=== PATIENT | female | born 1995 | race Caucasian/White ===

== ENCOUNTER 2021-10-16 11:55 | Emergency (ER) | payer OTHER ==
[~2021-10-16] VITALS: Ht 162.6 cm; Wt 61.4 kg
[2021-10-16] MEDS ORDERED: NS 1,000 ML IV ONE (12:20)
[2021-10-16] MEDS ORDERED: IBUPROFEN 600MG TAB PO ONE (12:20)
[2021-10-16 12:58] LABS: BASO # 0.1 10^3/uL (0.0-0.2); BASO % 0.3 % (0.0-1.0); EOS # 0.1 10^3/uL (0.0-0.5); EOS % 0.4 % (0.0-3.0); HEMATOCRIT 39.2 % (36.0-47.0); HEMOGLOBIN 11.7 g/dl (12.0-15.5); LYMPH # 3.3 10^3/uL (1.5-5.0); LYMPH % 21.4 % (24.0-44.0); MEAN CORPUSCULAR HEMOGLOBIN 21.9 pg (27.0-33.0); MEAN CORPUSCULAR HGB CONC 29.8 g/dl (32.0-36.5); MEAN CORPUSCULAR VOLUME 73.4 fl (80.0-96.0); MONO % 11.7 % (2.0-8.0); NEUTROPHILS # 10.3 10^3/uL (1.5-8.5); NEUTROPHILS % 65.8 % (36.0-66.0); PLATELET COUNT, AUTOMATED 409 10^3/uL (150-450); RED BLOOD COUNT 5.34 10^6/uL (4.00-5.40); WHITE BLOOD COUNT 15.6 10^3/uL (4.0-10.0)
[2021-10-16 13:22] LABS: MONO # 1.8 10^3/uL (0.0-0.8)
[2021-10-16 13:26] LABS: ALBUMIN 3.3 GM/DL (3.2-5.2); ALT/SGPT 19 U/L (12-78); BILIRUBIN,DIRECT < 0.1 MG/DL (0.0-0.2); BILIRUBIN,TOTAL 0.2 MG/DL (0.2-1.0); BLOOD UREA NITROGEN 12 MG/DL (7-18); CALCIUM LEVEL 8.5 MG/DL (8.5-10.1); CARBON DIOXIDE LEVEL 27 MEQ/L (21-32); CHLORIDE LEVEL 105 MEQ/L (98-107); CREATININE FOR GFR 0.76 MG/DL (0.55-1.30); GLOMERULAR FILTRATION RATE > 60.0 (>60); GLUCOSE, FASTING 77 MG/DL (70-100); NT-PRO BNP 29 PG/ML (<125); POTASSIUM SERUM 3.4 MEQ/L (3.5-5.1); SODIUM LEVEL 142 MEQ/L (136-145); THYROXINE (T4) 7.7 UG/DL (4.5-12.0); TOTAL PROTEIN 6.8 GM/DL (6.4-8.2)
[2021-10-16] MEDS ORDERED: ISOVUE-370 76% 100ML VIAL As Ordered ONE (13:36)
[2021-10-16 15:31] VITALS: O2SAT 96
[2021-10-16 16:15] VITALS: BP 108/66
== END 2021-10-16 17:02 | disposition home or self-care (01) ==
LOC: M ED 11:55 → EDBD 11:55 → M ED 17:02
DX: R06.02 Shortness of breath (principal); U07.1 COVID-19; Z88.0 Allergy status to penicillin; Z88.5 Allergy status to narcotic agent; Z91.018 Allergy to other foods; F17.210 Nicotine dependence, cigarettes, uncomplicated
CPT/HCPCS: 71045; 71275; 80048; 80076; 83605; 83880; 84145; 84436; 84443; 84702; 85025; 87040; 87798; 93005; 93041; 94760; 96360; 96361; 99285; Q9967

== ENCOUNTER → 2024-07-31 | Outpatient (CLI) | payer OTHER ==
[2024-07-31 18:11] LABS: HEMOGLOBIN 12.2 g/dl (12.0-15.5); MEAN CORPUSCULAR HEMOGLOBIN 28.4 pg (27.0-33.0); PLATELET COUNT, AUTOMATED 344 10^3/uL (150-450)
[2024-07-31 18:31] LABS: URIC ACID 4.1 MG/DL (3.1-7.8)
[2024-07-31 18:33] LABS: LDH LACTATE DEHYDROGENASE 137 U/L (120-246)
[2024-07-31 18:34] LABS: ALT/SGPT 10 U/L (7.0-40); AST/SGOT 10 U/L (<34); BILIRUBIN,TOTAL 0.2 MG/DL (0.3-1.2); CREATININE FOR GFR 0.43 MG/DL (0.55-1.30); GLOMERULAR FILTRATION RATE > 60.0 (>60)
[2024-07-31 19:00] LABS: HIV 1&2 SCREEN NEGATIVE (NEGATIVE)
[2024-07-31 19:07] LABS: HEPATITIS C VIRUS ABY INDEX 0.07 INDEX (<0.8)
== END ==
LOC: M PLALAB 15:13
PROVIDERS: ATTEND Nurse Practitioner Family
DX: Z34.82 Encounter for supervision of other normal pregnancy, second trimester (principal)

== ENCOUNTER → 2024-08-02 | Outpatient (CLI) | payer OTHER | LOC: M RAD 13:51 | PROVIDERS: ATTEND Nurse Practitioner Family | DX: Z34.92 Encounter for supervision of normal pregnancy, unspecified, second trimester (principal); Z3A.21 21 weeks gestation of pregnancy ==

== ENCOUNTER → 2024-08-23 | Outpatient (REF) | payer MEDICAID, OTHER ==
[2024-08-23 16:43] LABS: TOTAL PROTEIN,RANDOM URINE 21.1 MG/DL (0.0-14.0)
[2024-08-23 16:47] LABS: CREATININE,RANDOM URINE 129.9 MG/DL
[2024-08-23 18:03] LABS: GC DNA AMPLIFICATION NEGATIVE (NEGATIVE)
== END ==
LOC: M SFHCWAGY 15:27
PROVIDERS: ATTEND Nurse Practitioner Family
DX: Z34.82 Encounter for supervision of other normal pregnancy, second trimester (principal)

== ENCOUNTER → 2024-09-11 | Outpatient (CLI) | payer MEDICAID ==
[2024-09-11 15:00] LABS: HEMATOCRIT 33.8 % (36.0-47.0); HEMOGLOBIN 11.1 g/dl (12.0-15.5); MEAN CORPUSCULAR HEMOGLOBIN 28.8 pg (27.0-33.0); MEAN CORPUSCULAR HGB CONC 32.8 g/dl (32.0-36.5); MEAN CORPUSCULAR VOLUME 87.8 fl (80.0-96.0); PLATELET COUNT, AUTOMATED 324 10^3/uL (150-450); RED BLOOD COUNT 3.85 10^6/uL (4.00-5.40)
[2024-09-11 15:28] LABS: GLUCOSE CHALLENGE TEST 1 HOUR 83 MG/DL (LESS THAN 140)
[2024-09-11 16:20] LABS: HIV 1&2 SCREEN NEGATIVE (NEGATIVE)
[2024-09-11 16:28] LABS: HEPATITIS C VIRUS ABY INDEX 0.03 INDEX (<0.8)
== END ==
LOC: M LAB 11:54
PROVIDERS: ATTEND Specialist
DX: Z34.80 Encounter for supervision of other normal pregnancy, unspecified trimester (principal); Z3A.00 Weeks of gestation of pregnancy not specified

== ENCOUNTER → 2024-10-25 | Outpatient (CLI) | payer MEDICAID ==
[~2024-10-25] MED LIST: ALBU8.5H PO; ASPI81CH48 PO; PRENTAB9 PO; TREL1AER PO; TUMS500C PO
== END ==
LOC: M WHC 08:08
PROVIDERS: ATTEND Nurse Practitioner Family
DX: Z34.83 Encounter for supervision of other normal pregnancy, third trimester (principal); Z3A.33 33 weeks gestation of pregnancy

== ENCOUNTER 2024-10-30 11:08 | Outpatient (CLI) | payer MEDICAID, SELFPAY ==
[~2024-10-30] VITALS: Ht 162.6 cm; Wt 74.0 kg
[2024-10-30 11:24] VITALS: BP 109/58
[2024-10-30] MEDS ORDERED: ASPI81CH48 PO (11:49)
[2024-10-30] MEDS ORDERED: TREL1AER PO (11:49)
[2024-10-30] MEDS ORDERED: ALBU8.5H PO (11:49)
[2024-10-30] MEDS ORDERED: PRENTAB9 PO (11:49)
[2024-10-30] MEDS ORDERED: TUMS500C PO (11:50)
[2024-10-30] MEDS ORDERED: LR 1,000 ML IV ONE (12:05)
[2024-10-30 12:17] VITALS: BP 133/61
[2024-10-30] MEDS: ONDANSETRON 4MG 2ML VIAL IV ONE (12:30)
[2024-10-30] MEDS: LACTATED RINGER'S 1000 ML IV ONE (12:30)
[2024-10-30] MEDS: LR 1,000 ML IV SCH (12:33)
[2024-10-30 12:34] LABS: HEMOGLOBIN 12.1 g/dl (12.0-15.5); MEAN CORPUSCULAR HGB CONC 32.7 g/dl (32.0-36.5); MEAN CORPUSCULAR VOLUME 82.6 fl (80.0-96.0); PLATELET COUNT, AUTOMATED 250 10^3/uL (150-450); RED BLOOD COUNT 4.48 10^6/uL (4.00-5.40); WHITE BLOOD COUNT 7.6 10^3/uL (4.0-10.0)
[2024-10-30 13:10] LABS: ALBUMIN 2.6 G/DL (3.2-5.2); ALKALINE PHOSPHATASE 151 U/L (35-104); ALT/SGPT 19 U/L (7.0-40); AST/SGOT 42 U/L (<34); BILIRUBIN,TOTAL 0.5 MG/DL (0.3-1.2); BLOOD UREA NITROGEN 10 MG/DL (9-23); CALCIUM LEVEL 8.2 MG/DL (8.5-10.1); CARBON DIOXIDE LEVEL 18 MMOL/L (20-31); CHLORIDE LEVEL 108 MMOL/L (98-107); CREATININE FOR GFR 0.44 MG/DL (0.55-1.30); GLOMERULAR FILTRATION RATE > 60.0 (>60); GLUCOSE, FASTING 84 MG/DL (60-100); POTASSIUM SERUM 4.9 MMOL/L (3.5-5.1); SODIUM LEVEL 136 MMOL/L (136-145); TOTAL PROTEIN 6.7 G/DL (5.7-8.2)
[2024-10-30 13:16] LABS: APPEARANCE, URINE HAZY (CLEAR); BACTERIA, URINE AUTO 1+ (NEGATIVE); BILIRUBIN, URINE AUTO 1+ (NEGATIVE); BLOOD, URINE BLOOD NEGATIVE (NEGATIVE); COLOR, URINE AMBER (YELLOW); GLUCOSE, URINE (UA) AUTO NEGATIVE (NEGATIVE); KETONE, URINE AUTO 1+ mg/dL (NEGATIVE); LEUKOCYTE ESTERASE, URINE AUTO TRACE (NEGATIVE); MUCUS, URINE LARGE (NEGATIVE); NITRITE, URINE AUTO NEGATIVE (NEGATIVE); PROTEIN, URINE AUTO 2+ mg/dL (NEGATIVE); RBC, URINE AUTO 0 /HPF (0-3); SPECIFIC GRAVITY URINE AUTO 1.028 (1.002-1.035); SQUAMOUS EPITHELIAL CELL UR AU 6 /HPF (0-6); WBC, URINE AUTO 0 /HPF (0-3)
[2024-10-30 13:39] LABS: AMPHETAMINES URINE REFLEX NEGATIVE (NEGATIVE); BARBITURATES URINE REFLEX NEGATIVE (NEGATIVE); BENZODIAZEPINES URINE REFLEX NEGATIVE (NEGATIVE); CANNABINOIDS URINE REFLEX NEGATIVE (NEGATIVE); COCAINE METABOLITE URINE REFLE NEGATIVE (NEGATIVE); METHADONE URINE REFLEX NEGATIVE (NEGATIVE); OPIATES URINE REFLEX NEGATIVE (NEGATIVE); PHENCYCLIDINE URINE REFLEX NEGATIVE (NEGATIVE)
[2024-10-30] MEDS: PANTOPRAZOLE 40MG VIAL IV ONE (13:56)
[2024-10-30] MEDS: cefTRIAXone SOD 1 GM in DEXTROSE 5% (D5W) ADV/MINI-BAG 50 ML IV SCH (14:21)
[2024-10-30 14:25] VITALS: BP 117/68; O2SAT 100
[2024-10-30] MEDS: MULTIVITAMIN -ADULT INJECTION 10 ML in NS (Normal Saline) 0.9% 1,000 ML IV ONE (14:57)
[2024-10-30 16:00] VITALS: BP 119/65; O2SAT 99
[2024-10-30 18:06] VITALS: BP 116/62; O2SAT 97
== END 2024-10-30 19:40 | disposition home or self-care (01) ==
LOC: M LDO 11:08
PROVIDERS: ATTEND Advanced Practice Midwife
DX: O26.893 Other specified pregnancy related conditions, third trimester (principal); O21.8 Other vomiting complicating pregnancy; O23.43 Unspecified infection of urinary tract in pregnancy, third trimester; O36.5930 Maternal care for other known or suspected poor fetal growth, third trimester, not applicable or unspecified; O99.513 Diseases of the respiratory system complicating pregnancy, third trimester; O99.343 Other mental disorders complicating pregnancy, third trimester; O99.333 Smoking (tobacco) complicating pregnancy, third trimester; J45.909 Unspecified asthma, uncomplicated; F41.8 Other specified anxiety disorders; N39.0 Urinary tract infection, site not specified; R19.7 Diarrhea, unspecified; F17.200 Nicotine dependence, unspecified, uncomplicated; Z67.41 Type O blood, Rh negative; Z86.2 Personal history of diseases of the blood and blood-forming organs and certain disorders involving the immune mechanism; Z87.59 Personal history of other complications of pregnancy, childbirth and the puerperium; Z79.82 Long term (current) use of aspirin; Z3A.33 33 weeks gestation of pregnancy
CPT/HCPCS: 59025; 76775; 80053; 80307; 81001; 85027; 87086; 96360; 96361; 96365; 96374; 96376; G0463; J0696; J2405; J2470

== ENCOUNTER → 2024-11-01 | Outpatient (CLI) | payer MEDICAID | LOC: M WHC 10:11 | PROVIDERS: ATTEND Obstetrics & Gynecology | DX: O36.5930 Maternal care for other known or suspected poor fetal growth, third trimester, not applicable or unspecified (principal); Z3A.34 34 weeks gestation of pregnancy ==